=== PATIENT | female | born 1975 | race Two or more races ===

== ENCOUNTER 2019-05-13 17:39 | Emergency (ER) | payer MEDICAID, OTHER ==
[~2019-05-13] VITALS: Ht 152.4 cm; Wt 86.2 kg
[2019-05-13 18:30] VITALS: BP 156/81
[2019-05-13] MEDS ORDERED: TRIAMCINOLONE 40MG/ML 1ML VIAL IX ONE (19:00)
[2019-05-13] MEDS ORDERED: LIDOCAINE 2%HCL (LOCAL ANESTH.) INJ 10ml MDV IJ ONE (19:00)
== END 2019-05-13 19:39 | disposition home or self-care (01) ==
LOC: ER 17:41
DX: M62.838 Other muscle spasm (principal); M54.2 Cervicalgia
CPT/HCPCS: 20552; 73030; 99284; J2001; J3301